=== PATIENT | male | born 1970 | race Caucasian/White ===

== ENCOUNTER 2017-11-26 07:56 | Emergency (ER) | payer OTHER ==
[2017-11-26] MEDS ORDERED: NS 1000 ML 1,000 ML ONE (07:59)
[2017-11-26 08:06] VITALS: BP 155/94; BMI 42.8
[2017-11-26] MEDS ORDERED: NS 1000 ML 1,000 ML IV ONE (08:11)
[2017-11-26 08:46] LABS: BILIRUBIN,URINE NEGATIVE (NEGATIVE); BLOOD/HEMOGLOBIN,URINE 3+ (NEGATIVE); GLUCOSE, URINE NEGATIVE (NEGATIVE); KETONES,URINE NEGATIVE (NEGATIVE); LEUKOCYTE ESTERASE ,URINE NEGATIVE (NEGATIVE); NITRITES,URINE NEGATIVE (NEGATIVE); PROTEIN,URINE NEGATIVE (NEGATIVE); UROBILINOGEN,URINE NORMAL (NORMAL)
--- NOTE | 2017-11-26 08:53 | CT ---
HISTORY: Left flank pain Study: CT abdomen and pelvis without contrast Comparison: November 14, 2011 Technique: Multiple axial images of the abdomen and pelvis were obtained from the lung bases to the pubic symphy sis without the administration of IV contrast. Findings: The visualized portions of the lung bases are unremarkable. The liver, spleen, adrenals, and right k idney are grossly unremarkable in appearance given limitations of this noncontrast exam. The pancreas is partially fatty replaced. Images demonstrate mild to moderate left-sided hydronephrosis and proxi mal left hydroureter. An approximate 3-4 mm stone is noted within the proximal left ureter just dista l to the ureteropelvic junction. Mild left perinephric and periureteral fat stranding is demonstrated . Evaluation of the pelvis including the urinary bladder is limited due to extensive streak artifact from postoperative changes of the left hip. As visualized the urinary bladder is grossly unremarkable . The prostate is prominent heterogeneous in appearance. Calcifications are noted within the prostate as well. A partially air-filled tubular structure within the right lower quadrant felt to represent the appendix is otherwise grossly unremarkable. Evaluation of the stomach, small bowel, colon is limi bruce without oral contrast. Degenerative changes of the visualized spine are noted. IMPRESSION: 3-4 mm proximal left ureteral stone resulting in associated mild to moderate left-sided hydronephrosi s and proximal left hydroureter. Other findings as noted above. Reported By:
[2017-11-26 09:02] LABS: APPEARANCE,URINE CLEAR (CLEAR); COLOR,URINE YELLOW (YELLOW)
[2017-11-26 09:03] LABS: BACTERIA,URINE NEGATIVE /HPF (NEGATIVE); SQUAMOUS EPITHELIAL CELL,UR FEW /HPF (NEGATIVE)
--- NOTE | 2017-11-26 09:30 | DR.GENAD ---
HPI - PCP Primary Care Physician: JEAN DIA - Complaint/Symptoms Chief Complaint Doctors Comments: He has intermittent Lt. flank pain with radiation to the Lt. inguinal area. He has had intermittent nausea also. The symptom starrted on 11/23/17 and he was evaluated and dx. with a Lt. sided ureterolithiasis in an ED while in [place]. He was sent home with rx. for Percocet, Promethazine and Flomax. He was instructed on PCP or Urology f/u as outpt., at time of d/c from there. He has been so nauseated that he is not able to keep meds. down. This a.m., the pain got more intense and that is the reason for coming in here. Chief Complaint:: PT. C/O LEFT FLANK PAIN THAT BEGAN 4 DAYS AGO. PT. WAS SEEN AT [facility] ON 11/23/17 AND WAS DIAGNOSED WITH A 4 MM KIDNEY STONE. PT. C/O PAIN AND N/V. - Nurses notes reviewed Nurses Notes Review: Yes - Source History Provided: Patient - Mode of Arrival Mode of Arrival: Ambulatory - Timing Onset of Chief Complaint: 11/22/17 PMH - PMH Past Medical History: Yes Past Medical History: Diabetes, Hypertension, Kidney Stones Past Surgical History: Yes Surgical History: Joint Replacement Past Surgical History Comment: LEFT HIP REPLACEMENT - Family History History of Family Medical Conditions: Yes Family Medical History: Diabetes Mellitus, Hypertension - Social History Does patient currently use any type of tobacco product: No Have you used tobacco products in the last 12 months: No Type of Tobacco Use: None Does any household member use tobacco: No Alcohol Use: None Do you use any recreational Drugs:: No Lives With: Spouse Lives Where: Home - infectious screening In the last 2 months have you had wt loss of >10#?: NO Have you had fever, night sweats or hemotysis?: No Have you traveled outside the country in the last 6 months?: No Isolation: Standard ROS - Review of Systems Constitutional: No Symptoms Reported Eyes: No Symptoms Reported ENTM: No Symptoms Reported Respiratoy: No Symptoms Reported Cardiovascular: No Symptoms Reported Gastrointestinal/Abdominal: Nausea Genitourinary: Pain (Lt. flank) Neurological: No Symptoms Reported Musculoskeletal: No Symptoms Reported Integumentary: No Symptoms Reported Hematologic/Lymphatic: No Symptoms Reported Endocrine: No Symptoms Reported Psychiatric: No Symptoms Reported All Other Systems: Reviewed and Negative PE - Vital Signs Vitals: Temperature 97.4 F Pulse Rate 60 Respiratory Rate 24 Blood Pressure [Right Arm] 131/80 Blood Pressure [Left Arm] 144/88 Blood Pressure 155/94 O2 Sat by Pulse Oximetry 96 - General Limitations: No Limitations General Appearance: Alert, In No Apparent Distress - Head Head Exam: Normal Inspection - Eyes Eye exam: Normal Appearance - ENT ENT Exam: Normal Exam - Neck Neck Exam: Normal Inspection - Chest Chest Inspection: Normal Inspection - Respiratory Respiratory Exam: Normal Lung Sounds Bilat - Cardiovascular Cardiovascular Exam: Regular Rate, Normal Rhythm, +S1, +S2 - Abdominal Exam Abdominal Exam: Normal Inspection, Normal Bowel Sounds, Soft - Extremities Extremities Exam: Normal Inspection - Back Back Exam: Normal Inspection - Neurologic Neurological Exam: Alert, Oriented X3 - Psychiatric Psychiatric Exam: Normal Affect, Normal Mood - Skin Skin Exam: Warm, Dry, Intact, Normal Color Course - Reevaluation 1st: Improved - Education/Counseling Education/Counseling: Patient, Family, Education, Counseling Educated On: Treatment, Diagnosis, Prognosis, Needs for Follow Up ROR - Labs Reviewed Laboratory: Specimen Type Random urine 11/26/17 08:36 Urine Color Yellow (YELLOW) 11/26/17 08:36 Urine Appearance Clear (CLEAR) 11/26/17 08:36 Urine pH 5.0 (5.0 - 8.0) 11/26/17 08:36 Ur Specific [place] 1.020 (1.000-1.030) 11/26/17 08:36 Urine Protein Negative (NEGATIVE) 11/26/17 08:36 Urine Glucose (UA) Negative (NEGATIVE) 11/26/17 08:36 Urine Ketones Negative (NEGATIVE) 11/26/17 08:36 Urine Occult Blood 3+ (NEGATIVE) 11/26/17 08:36 Urine Nitrite Negative (NEGATIVE) 11/26/17 08:36 Urine Bilirubin Negative (NEGATIVE) 11/26/17 08:36 Urine Urobilinogen Normal (NORMAL) 11/26/17 08:36 Ur Leukocyte Esterase Negative (NEGATIVE) 11/26/17 08:36 Urine RBC 3-5 /HPF (NONE SEEN) 11/26/17 08:36 Urine WBC None seen /HPF (NONE SEEN) 11/26/17 08:36 Ur Squamous Epith Cells Few /HPF (NEGATIVE) 11/26/17 08:36 Urine Bacteria Negative /HPF (NEGATIVE) 11/26/17 08:36 Ur Culture Indicated? No/not indicated 11/26/17 08:36 - XRAY XRAY Interpreted by: Radiologist (Lt.proximal uretero-lithiasis with hydro- ureter and hydronephrosis.) - Diagnosis Discharge Problem: Ureter colic, Ureterolithiasis - Discharge Plan Disposition: 01 HOME, SELF-CARE Condition: Stable - Follow ups/Referrals Follow ups/Referrals: AMARILIS DOWD [Primary Care Provider] - 3 days - Instructions Instructions: Kidney Stones, [id number] Additional Notes - Additional Notes Additional Notes: Hr has a script for Percocet and Phenergan at home. He has hardly used these for symptom control. I offered to write some pPhenergan suppositories for him but basically he hates these medications because he doesn' t like to feel doped. I informed him that for now he'll have to use these medications as prescribed to get his symptoms controlled. Also, I informed him that if he still symptomatic in a few days, he should go see his PCP about getting to a Urologist.
== END 2017-11-26 09:53 | disposition home or self-care (01) ==
LOC: ER 08:26
DX: N23 Unspecified renal colic (principal); N20.1 Calculus of ureter
CPT/HCPCS: 74176; 81001; 96365; 99283; 99284; A4222